=== PATIENT | female | born 1980 | race Caucasian/White ===

== ENCOUNTER 2020-06-24 04:17 | Emergency (ER) | payer SELFPAY ==
[~2020-06-24] VITALS: Ht 154.9 cm; Wt 79.6 kg
[2020-06-24] MEDS ORDERED: IPRATRPIUM/ALBUTEROL 0.5/2.5MG 3 ML NEBU. NEB ONE (04:30)
[2020-06-24] MEDS ORDERED: methylPREDNISolone SOD SUCC PF 125 MG/2 ML VIAL. IV ONE (04:30)
[2020-06-24] MEDS ORDERED: ALBU2.5V8 INH (04:34)
--- NOTE | 2020-06-24 04:35 | PHYS DOC ---
Past History Past Medical History: Asthma General Adult HPI: HPI: 40-year-old female significant history of asthma, degenerative disc disease, who presents for evaluation of dyspnea. Patient reports a 2-day history of nonproductive cough and dyspnea. She subsequently developed some left posterior lateral chest pain. No genitourinary complaints. No obvious aggravating or alleviating factors. Review of Systems: Review of Systems: Gen: No fever, chills. Eyes: No blurred vision, diplopia. ENT: No nasal congestion, sore throat. CV: No palpitations. Reports left posterior lateral chest pain. Resp. Reports SOB, cough. GI: No abd pain, N/V. : No dysuria, hematuria. Neuro: No DILLON, dizziness, weakness. MSK: No myalgia, arthralgia. Skin: No acute rash or lesion. Remainder of systems reviewed and negative unless otherwise specified. Current Medications: Current Meds: Current Medications Medications (Trade) Dose Ordered Sig/Nicky Start Time Stop Time Status Last Admin Dose Admin Albuterol/ Ipratropium (Duoneb) 3 ml 1X ONCE 06/24/20 04:30 06/24/20 04:31 UNV Methylprednisolone Sodium Succinate (SOLU-Medrol 125MG VIAL) 125 mg 1X ONCE 06/24/20 04:30 06/24/20 04:31 UNV Physical Exam: PE: Gen: NAD. Head: NC/AT. Eyes: No scleral icterus. No conjunctival injection. ENT: MMM. Posterior OP clear. Neck: Supple. NT. CV: Mild tachycardia 105. Peripheral pulses intact. Resp: Globally diminished. Prolonged expiratory phase. Abd: Soft. NT. ND. No flank percussion tenderness. MSK: No peripheral cyanosis. No edema. No calf tenderness or asymmetry. Neuro: A&Ox3. Strength & sensation grossly intact throughout. Skin. Warm. Dry. Psych: Tearful. Current Patient Data: Labs: Laboratory Tests Test 06/24/20 04:25 06/24/20 04:30 06/24/20 04:31 Urine Collection Type Unknown Urine Color Yellow Urine Clarity Hazy Urine pH 6.0 Urine Specific [place] 1.025 Urine Protein Neg (NEG-TRACE) Urine Glucose (UA) Neg mg/dL (NEG) Urine Ketones (Stick) Neg mg/dL (NEG) Urine Blood Neg (NEG) Urine Nitrite Neg (NEG) Urine Bilirubin Neg (NEG) Urine Urobilinogen Dipstick 0.2 mg/dL (0.2 mg/dL) Urine Leukocyte Esterase Neg (NEG) Urine RBC 0 /HPF (0-2) Urine WBC 1-4 /HPF (0-4) Urine Squamous Epithelial Cells Many /LPF Urine Bacteria Few /HPF (0-FEW) White Blood Count 15.1 x10^3/uL (4.0-11.0) H Red Blood Count 5.24 x10^6/uL (3.50-5.40) Hemoglobin 16.2 g/dL (12.0-15.5) H Hematocrit 48.2 % (36.0-47.0) H Mean Corpuscular Volume 92 fL (79-100) Mean Corpuscular Hemoglobin 31 pg (25-35) Mean Corpuscular Hemoglobin Concent 34 g/dL (31-37) Red Cell Distribution Width 14.3 % (11.5-14.5) Platelet Count 269 x10^3/uL (140-400) Neutrophils (%) (Auto) 67 % (31-73) Lymphocytes (%) (Auto) 24 % (24-48) Monocytes (%) (Auto) 7 % (0-9) Eosinophils (%) (Auto) 2 % (0-3) Basophils (%) (Auto) 0 % (0-3) Neutrophils # (Auto) 10.1 x10^3uL (1.8-7.7) H Lymphocytes # (Auto) 3.7 x10^3/uL (1.0-4.8) Monocytes # (Auto) 1.0 x10^3/uL (0.0-1.1) Eosinophils # (Auto) 0.3 x10^3/uL (0.0-0.7) Basophils # (Auto) 0.0 x10^3/uL (0.0-0.2) Segmented Neutrophils % 69 % (35-66) H Band Neutrophils % 3 % (0-9) Lymphocytes % 23 % (24-48) L Monocytes % 4 % (0-10) Eosinophils % 1 % (0-5) Platelet Estimate Adequate (ADEQUATE) D-Dimer (Shauna) 0.32 mg/L (0.00-0.50) Sodium Level 139 mmol/L (136-145) Potassium Level 3.7 mmol/L (3.5-5.1) Chloride Level 100 mmol/L (98-107) Carbon Dioxide Level 30 mmol/L (21-32) Anion Gap 9 (6-14) Blood Urea Nitrogen 14 mg/dL (7-20) Creatinine 0.7 mg/dL (0.6-1.0) Estimated GFR (Cockcroft-Gault) 93.6 BUN/Creatinine Ratio 20 (6-20) Glucose Level 128 mg/dL (70-99) H Calcium Level 9.1 mg/dL (8.5-10.1) Magnesium Level 2.1 mg/dL (1.8-2.4) Total Bilirubin 0.4 mg/dL (0.2-1.0) Aspartate Amino Transferase (AST) 12 U/L (15-37) L Alanine Aminotransferase (ALT) 29 U/L (14-59) Alkaline Phosphatase 91 U/L (46-116) Troponin I Quantitative < 0.017 ng/mL (0-0.055) QI-Wkt-S-Type Natriuretic Peptide 22 pg/mL (0-124) Total Protein 8.3 g/dL (6.4-8.2) H Albumin 3.5 g/dL (3.4-5.0) Albumin/Globulin Ratio 0.7 (1.0-1.7) L Lipase 50 U/L (73-393) L POC Urine HCG, Qualitative hcg negative (Negative) EKG: EKG: EKG at 0445. Sinus rhythm. Heart rate 100. Normal intervals. No STEMI. Interpreted by me. Radiology/Procedures: Radiology/Procedures: PROCEDURE: PORTABLE CHEST 1V XR CHEST 1V History: Reason: SOA / Spl. Instructions: / History: Comparison: None. Findings: Mild mid and basilar ill-defined opacities. No pleural effusion. No pneumothorax. Normal heart size. Impression: 1. Mild bilateral ill-defined opacities, may represent atelectasis or developing infiltrates such as viral pneumonia. Electronically signed by: Gavino Harmon DO (06/24/2020 4:59 AM) [facility] Heart Score: C/O Chest Pain: Yes HEART Score for Chest Pain: HEART Score for Chest Pain Response (Comments) Value History Slighlty/Non-Suspicious 0 ECG Normal 0 Age < 45 0 Risk Factors 1 or 2 Risk Factors 1 Troponin < Normal Limit 0 Total 1 Risk Factors: Risk Factors: DM, Current or recent (<one month) smoker, HTN, HLP, family history of CAD, obesity. Risk Scores: Score 0 - 3: 2.5% MACE over next 6 weeks - Discharge Home Score 4 - 6: 20.3% MACE over next 6 weeks - Admit for Clinical Observation Score 7 - 10: 72.7% MACE over next 6 weeks - Early Invasive Strategies Course & Med Decision Making: Course & Med Decision Making Pertinent Labs and Imaging studies reviewed. (See chart for details) In summary, 40-year-old female significant history of asthma, who presents for evaluation of a 2-day history of cough, dyspnea, and left posterolateral chest pain. Hemodynamically stable. Mildly tachycardic but no hypoxia. The patient is uncomfortable appearing, with globally diminished breath sounds and prolonged expiratory phase on auscultation. No clinical signs or symptoms of DVT. Her EKG shows no acute injury pattern. Will obtain chest x-ray, basic lab work, troponin, D-dimer in this patient was otherwise low risk for PE but cannot be ruled out by PERC due to tachycardia. Will administer Solu-Medrol and DuoNeb. 0526: Lab work is notable for a mild leukocytosis of 15 with a neutrophilic predominance. Remainder lab work is otherwise unrevealing including negative troponin and normal BNP. D-dimer negative. Urinalysis is not indicative of UTI. Chest x-ray, however shows developing bilateral infiltrates. Given the neutrophilic predominance on CBC differential, will empirically treat with Augmentin/Zithromax. The patient remains well-appearing and nontoxic. Pulse oximetry is within normal is on room air. Her presentation is likely a consequence of pneumonia, asthma, pleuritis. We discharged home with prescriptions for antibiotics, prednisone, refill of albuterol ampules for her nebulizer, refill of albuterol MDI. Outpatient follow-up. Return precautions given. Pineda Disclaimer: Pineda Disclaimer: This electronic medical record was generated, in whole or in part, using a voice recognition dictation system. Departure Departure: Impression: Primary Impression: Pneumonia Additional Impressions: Asthma Pleuritis Disposition: 01 DC HOME SELF CARE/HOMELESS Condition: STABLE Referrals: PCP,CHRISTIANO (PCP) Patient Instructions: Asthma, Adult, [id number], Pleurisy, Muis-vb-Oata, Pneumonia, Adult, Oibl-qv-Oiuz Scripts Albuterol Sulfate (PROAIR HFA INHALER) 8.5 Gm Hfa.aer.ad 2 PUFF IH PRN Q4-6HRS PRN for wheezing for 21 Days, #1 INHALER 0 Refills Prov: LE,ZIGGY H DO 06/24/20 Ipratropium/Albuterol Sulfate (DUONEB 0.5-3(2.5) MG/3 ML) 3 Ml Ampul.neb 3 ML NEB QID PRN for WHEEZING, #30 EACH Prov: LE,ZIGGY H DO 06/24/20 Azithromycin (ZITHROMAX PACKET) 1 Gm Packet 1 PACKET PO ONCE for pneumonia, #1 PACKET Prov: LE,ZIGGY H DO 06/24/20 Amoxicillin/Potassium Clav (AUGMENTIN 875-125 TABLET) 1 Each Tablet 1 TAB PO BID for pneumonia for 7 Days, #14 TAB 0 Refills Prov: LE,ZIGGY H DO 06/24/20 Prednisone (PREDNISONE) 20 Mg Tablet 2 TAB PO DAILY for asthma, #10 TAB Prov: LE,ZIGGY H DO 06/24/20 LE,ZIGGY H DO Jun 24, 2020 04:35
[2020-06-24 04:54] LABS: BASO % 0 % (0-3); EOS # 0.3 x10^3/uL (0.0-0.7); EOS % 2 % (0-3); HEMATOCRIT 48.2 % (36.0-47.0); HEMOGLOBIN 16.2 g/dL (12.0-15.5); LYMPH # 3.7 x10^3/uL (1.0-4.8); LYMPH % 24 % (24-48); MEAN CORPUSCULAR HEMOGLOBIN 31 pg (25-35); MEAN CORPUSCULAR HGB CONC 34 g/dL (31-37); MEAN CORPUSCULAR VOLUME 92 fL (79-100); MONO % 7 % (0-9); NEUT # 10.1 x10^3uL (1.8-7.7); NEUT % 67 % (31-73); PLATELET COUNT 269 x10^3/uL (140-400); RED BLOOD COUNT 5.24 x10^6/uL (3.50-5.40); RED CELL DISTRIBUTION WIDTH 14.3 % (11.5-14.5); WHITE BLOOD COUNT 15.1 x10^3/uL (4.0-11.0)
[2020-06-24 04:59] LABS: BILIRUBIN,URINE NEG (NEG); CLARITY,URINE HAZY; COLOR,URINE YELLOW; GLUCOSE,URINE NEG (NEG)
[2020-06-24 05:00] LABS: BACTERIA,URINE FEW /HPF (0-FEW); NITRITE,URINE NEG (NEG); RBC,URINE 0 /HPF (0-2); SQUAMOUS EPITHELIAL CELL,UR MANY /LPF; UROBILINOGEN,URINE 0.2 mg/dL (0.2 mg/dL)
[2020-06-24 05:01] LABS: CALCIUM 9.1 mg/dL (8.5-10.1); CREATININE 0.7 mg/dL (0.6-1.0); GFR 93.6; POTASSIUM 3.7 mmol/L (3.5-5.1)
--- NOTE | 2020-06-24 05:01 | RAD ---
XR CHEST 1V History: Reason: SOA / Spl. Instructions: / History: Comparison: None. Findings: Mild mid and basilar ill-defined opacities. No pleural effusion. No pneumothorax. Normal heart size. Impression: 1. Mild bilateral ill-defined opacities, may represent atelectasis or developing infiltrates such as viral pneumonia. Electronically signed by: Gavino Harmon DO (06/24/2020 4:59 AM) [facility] [place]
[2020-06-24 05:15] LABS: ALBUMIN 3.5 g/dL (3.4-5.0); ALBUMIN/GLOBULIN RATIO 0.7 (1.0-1.7); MAGNESIUM 2.1 mg/dL (1.8-2.4); TOTAL BILIRUBIN 0.4 mg/dL (0.2-1.0); TOTAL PROTEIN 8.3 g/dL (6.4-8.2)
[2020-06-24 05:22] LABS: % BANDS 3 % (0-9); % EOS 1 % (0-5); % LYMPHS 23 % (24-48); % MONOS 4 % (0-10); % SEGS 69 % (35-66); PLT ESTIMATE ADEQUATE (ADEQUATE)
[2020-06-24] MEDS ORDERED: IPRA3AMP29 NEB (05:31)
[2020-06-24] MEDS ORDERED: PRED20TA PO (05:31)
[2020-06-24] MEDS ORDERED: AZIT1PAC PO (05:31)
[2020-06-24] MEDS ORDERED: AMOX1TAB61 PO (05:31)
[2020-06-24] MEDS ORDERED: ALBU2.5V8 IH (05:31)
[2020-06-24 05:50] VITALS: BP 119/70
[2020-06-24] MEDS ORDERED: AMOXICILLIN/K CLAV 875/125MG TABLET. PO ONE (06:00)
[2020-06-24] MEDS ORDERED: AZITHROMYCIN 250 MG TABLET. PO ONE (06:00)
[2020-06-24] MEDS ORDERED: KETOROLAC 15 MG/ML VIAL. IVP ONE (06:00)
--- NOTE | 2020-06-24 06:41 | EKG ---
[address] [address] Test Date: 2020-06-24 Test Time: 04:45:22 Pat Name: TRAVON BRASWELL Department: Room: Gender: F [employer] Consulting Manager: EVAN : 1980 Requested By: ZIGGY VILLEGAS Order Number: [id number] Reading MD: Measurements Intervals [place] Rate: 100 P: 64 NH: 144 QRS: 75 QRSD: 82 T: 68 QT: 320 QTc: 416 Interpretive Statements SINUS RHYTHM NORMAL ECG RI6.02 No previous ECG available for comparison
== END 2020-06-24 06:30 | disposition home or self-care (01) ==
LOC: ER 04:17
DX: J18.9 Pneumonia, unspecified organism (principal); J45.909 Unspecified asthma, uncomplicated; R09.1 Pleurisy
CPT/HCPCS: 36415; 71045; 80053; 81001; 81025; 83690; 83735; 83880; 84484; 85007; 85025; 85379; 93005; 94640; 96374; 96375; 99285; G0238; J1885; J2930